=== PATIENT | male | born 1930 | race Caucasian/White ===

== ENCOUNTER 2017-08-03 08:42 | Emergency (ER) | payer MEDICARE, BC ==
[~2017-08-03] VITALS: Ht 180.3 cm; Wt 85.0 kg
[~2017-08-03 08:42] MED LIST: ALPR0.25 PO; CARV12.52 PO; DESM1TAB16 PO; DILT-48 PO; ESCI10TA PO; FINA5TAB2 PO; LISI10TA3 PO; OCUVTAB4 PO; PANT40TA3 PO; PRAV20TA2 PO; SYMB80AE INH; TAMS0.4C4 PO; TIOT12.9 INH; TRAV0.00 EACH EYE; VESI5TAB2 PO; WARF-23 PO
[2017-08-03 08:50] VITALS: BP 136/63; PULSE 74; RESP 16; TEMP 97.8; O2SAT 100
[2017-08-03] MEDS ORDERED: LISI-519 PO (09:20)
[2017-08-03] MEDS ORDERED: DILT120C50 PO (09:20)
[2017-08-03 09:25] VITALS: BP_SYST 139; BP_SYST 144; BP_DIAS 63; BP_DIAS 70; PULSE 64; RESP 18; RESP 20; O2SAT 98
[2017-08-03] MEDS ORDERED: SODIUM CHLORIDE 0.9% FLUSH 10 ML FLUSH IVF PRN (09:30)
[2017-08-03 09:54] LABS: AUTOMATED NEUTROPHIL # 5.3 TH/MM3 (1.8-7.7); BASOPHIL # 0.1 TH/MM3 (0-0.2); BASOPHIL % 0.8 % (0.0-2.0); EOSINOPHIL # 0.2 TH/MM3 (0-0.4); HEMATOCRIT 41.3 % (39.0-51.0); HEMOGLOBIN 13.6 GM/DL (13.0-17.0); LYMPH % 10.3 % (9.0-44.0); LYMPHOCYTE # 0.8 TH/MM3 (1.0-4.8); MEAN CELL VOLUME 98.8 FL (80.0-100.0); MEAN CORPUSCULAR HEMOGLOBIN 32.5 PG (27.0-34.0); MEAN CORPUSCULAR HGB CONC 32.9 % (32.0-36.0); MEAN PLATELET VOLUME 7.8 FL (7.0-11.0); NEUT % 71.9 % (16.0-70.0); PLATELET COUNT 296 TH/MM3 (150-450); RED BLOOD COUNT 4.18 MIL/MM3 (4.50-5.90); RED CELL DISTRIBUTION WIDTH 14.9 % (11.6-17.2); WHITE BLOOD COUNT 7.4 TH/MM3 (4.0-11.0)
[2017-08-03 09:58] LABS: INTERNATIONAL NORMALIZED RATIO 2.7 RATIO; PROTHROMBIN TIME - PATIENT 26.9 SEC (9.8-11.6)
[2017-08-03 10:12] LABS: ALBUMIN 2.8 GM/DL (3.4-5.0); ALT (GPT) 15 U/L (12-78); AST (GOT) 12 U/L (15-37); BICARBONATE 28.5 MEQ/L (21.0-32.0); BLOOD UREA NITROGEN 19 MG/DL (7-18); CALCIUM 8.9 MG/DL (8.5-10.1); CHLORIDE 108 MEQ/L (98-107); CREATININE 1.27 MG/DL (0.60-1.30); GLOMERULAR FILTRATION RATE 54 ML/MIN (>89); GLUCOSE,RANDOM 116 MG/DL (74-106); SODIUM (NA) 143 MEQ/L (136-145)
[2017-08-03 10:16] LABS: ALKALINE PHOSPHATASE 61 U/L (45-117); TOTAL PROTEIN 6.5 GM/DL (6.4-8.2); TROPONIN I LESS THAN 0.02 NG/ML (0.02-0.05)
--- NOTE | 2017-08-03 10:22 | RADRPT ---
EXAM DATE: 08/03/2017 10:04 AM EDT AGE/SEX: 86 years / Male INDICATIONS: Chest pain after fall, feeling of tightness above left sided pacemaker. CLINICAL DATA: This is the patient's initial encounter. Patient reports that signs and symptoms have been present for 1 week and indicates a pain score of 3/10. MEDICAL/SURGICAL HISTORY: None. Pacemaker. COMPARISON: [facility], CHEST SINGLE AP, 08/16/2014. . FINDINGS: A single AP view of the chest demonstrates the lungs to be symmetrically aerated without evidence of mass, infiltrate or effusion. Stable cardiomegaly. Dual lead pacing device. Pulmonary vasculature is normal in caliber. Osseous structures are intact. CONCLUSION: Stable cardiomegaly without evidence of congestive heart failure. No evidence of rib fracture or pulm onary contusion. Electronically signed by: Sylvia Dutta MD 08/03/2017 10:20 AM EDT
--- NOTE | 2017-08-03 10:25 | RADRPT ---
EXAM DATE: 08/03/2017 10:18 AM EDT AGE/SEX: 86 years / Male INDICATIONS: Right arm numbness with neck stiffness. CLINICAL DATA: This is the patient's initial encounter. Patient reports that signs and symptoms have been present for 1 month and indicates a pain score of 3/10. MEDICAL/SURGICAL HISTORY: Cardiovascular disease. Appendectomy. Cholecystectomy. Pacemaker. RADIATION DOSE: 26.21 CTDI (mGy) COMPARISON: No prior [facility] exams available for comparison. TECHNIQUE: Contiguous axial images were obtained using helical multirow detector technique. The vol umetric data was post-processed with multiplanar reconstruction in oblique axial, sagittal, and coron al planes. Using automated exposure control and adjustment of the mA and/or kV according to patient s ize, radiation dose was kept as low as reasonably achievable to obtain optimal diagnostic quality sharlene ges. FINDINGS: Vertebrae: Normal vertebral body height. Alignment: There is slight retrolisthesis of C3 on C4. C2-3: Bilateral uncovertebral joint hypertrophy and calcified posterior disc osteophyte complex. Cornelio ateral mild neural foraminal narrowing. No significant spinal canal narrowing. C3-4: Severe disc desiccation and disc space narrowing with grade 1 retrolisthesis of C3 on C4. Sabrina re bilateral uncovertebral joint hypertrophy. Severe left-sided neural foraminal stenosis, moderate o n the right. Moderate narrowing of the spinal canal in AP dimension. C4-5: Severe left-sided facet degenerative change. Mild left-sided neural foraminal narrowing. Minim al posterior disc osteophyte complex. C5-6: Severe bilateral facet degenerative changes, left greater than right. Uncovertebral joint hype rtrophy and posterior disc osteophyte complex. Moderate bilateral neuroforaminal stenosis. No signifi cant spinal canal stenosis. C6-7: Uncovertebral joint hypertrophy with no significant neural foraminal stenosis. C7-T1: The bony spinal canal is normal in size. No evidence of disc bulge or herniation. The neura l foramina are bilaterally patent. CONCLUSION: 1. Degenerative changes as noted above. Electronically signed by: Sylvia Dutta MD 08/03/2017 10:23 AM EDT
--- NOTE | 2017-08-03 11:42 | PD ---
HPI Chief Complaint: Chest Pain Time Seen by Provider: 09:00 Travel History International Travel<30 days: No Contact w/Intl Traveler<30days: No Traveled to known affect area: No History of Present Illness HPI Patient is an 86-year-old male who comes in complaining of pain across his chest and some tingling in his fingers ever since a fall a week ago. He said he was [place] his to the airport he slipped in a puddle and fell on his front side. He denies hitting his head or any loss of consciousness. He says he has chronic neck pain. He has seen his primary doctor since this and has not told him about any of these symptoms. He says they come and go. He does not think they are related to exertion. He did see his tunnel kiln firer in July and his reports that he had several tests done that were all normal. He denies shortness of breath or fevers. Severity is mild. PFSH Past Medical History Hx Anticoagulant Therapy: Yes Arthritis: Yes Asthma: No Atrial Fibrillation: Yes Autoimmune Disease: Yes (diverticular ) Blood Disorders: No Anxiety: No Depression: No Heart Rhythm Problems: Yes Cancer: No Cardiovascular Problems: Yes High Cholesterol: Yes Chemotherapy: No Chest Pain: Yes Congestive Heart Failure: No COPD: No Cerebrovascular Accident: No Diabetes: Yes Patient Takes Glucophage: No Diminished Hearing: Yes Endocrine: No Gastrointestinal Disorders: Yes GERD: Yes Glaucoma: No Headaches: Yes Hepatitis: No Hiatal Hernia: No Hypertension: Yes Immune Disorder: No Kidney Stones: No Musculoskeletal: Yes Neurologic: No Psychiatric: No Respiratory: Yes Myocardial Infarction: No Radiation Therapy: No Renal Failure: No Seizures: No Sleep Apnea: Yes Thyroid Disease: No Ulcer: No Past Surgical History Abdominal Surgery: Yes (gallbladder removal 1999) Appendectomy: Yes Cardiac Surgery: No Cholecystectomy: Yes Ear Surgery: No Endocrine Surgery: No Eye Surgery: No Genitourinary Surgery: No Gynecologic Surgery: No Joint Replacement: No Oral Surgery: No Pacemaker: Yes Thoracic Surgery: No Other Surgery: Yes Social History Alcohol Use: Yes ("OCCASIONALLY") Tobacco Use: No Substance Use: No Allergies-Medications (Allergen,Severity, Reaction): Coded Allergies: No Known Allergies (Verified Adverse Reaction, Unknown, 08/03/17) Reported Meds & Prescriptions Reported Meds & Active Scripts Active Reported Lisinopril 5 Mg Tab 5 Mg PO DAILY Diltiazem CD 24 HR 120 Mg Caper 120 Mg PO DAILY Spiriva Respimat Inh (Tiotropium Inh) 2.5 Mcg/Act Aero 2 Puff INH HS 2.5 mcg = 1 inhalation Carvedilol 12.5 Mg Tab 25 Mg PO BID Preservision Areds (Multiple Vitamins W/ Minerals) 1 Tab 1 Tab PO DAILY Travatan Z Opth Drops (Travoprost) 0.004 % Soln 1 Drop EACH EYE HS Warfarin 5 Mg Tab 5 Mg PO DAILY Tamsulosin (Tamsulosin HCl) 0.4 Mg Cap 0.4 Mg PO HS Vesicare (Solifenacin) 5 Mg Tab 5 Mg PO DAILY Pravastatin 20 Mg Tab 20 Mg PO DAILY Escitalopram (Escitalopram Oxalate) 10 Mg Tab 10 Mg PO DAILY Desmopressin (Desmopressin Acetate) 0.2 Mg Tab 0.2 Mg PO BID Finasteride 5 Mg Tab 5 Mg PO DAILY Do not crush. Symbicort Inh (Budesonide/Formoterol Fumarate) 80-4.5 Mcg/Act Aero 1 Puff INH Q12HR Review of Systems Except as stated in HPI: all other systems reviewed are Neg General / Constitutional: No: Fever, Chills Eyes: No: Blurred Vision HENT: Positive: Neck Pain, No: Headaches, Lightheadedness Cardiovascular: Positive: Chest Pain or Discomfort Respiratory: No: Shortness of Breath Gastrointestinal: No: Nausea, Vomiting, Abdominal Pain Genitourinary: No: Dysuria Skin: No Rash, No Change in Pigmentation Neurologic: No: Weakness, Dizziness Physical Exam Narrative GENERAL: Awake and alert, no acute distress. SKIN: Focused skin assessment warm/dry. No wounds or signs of infection. HEAD: Atraumatic. Normocephalic. EYES: Pupils equal and round. No scleral icterus. ENT: Mucous membranes pink and moist. NECK: Trachea midline. No JVD. CARDIOVASCULAR: Regular rate and rhythm. No murmur appreciated. RESPIRATORY: No accessory muscle use. Clear to auscultation. Breath sounds equal bilaterally. GASTROINTESTINAL: Abdomen soft, non-tender, nondistended. MUSCULOSKELETAL: No obvious deformities. No clubbing. No cyanosis. No edema. NEUROLOGICAL: Awake and alert. No obvious cranial nerve deficits. Motor grossly within normal limits. Normal speech. No sensory disturbance. PSYCHIATRIC: Appropriate mood and affect; insight and judgment normal. Data Data Last Documented VS Vital Signs Date Time Temp Pulse Resp B/P (MAP) Pulse Ox O2 Delivery O2 Flow Rate FiO2 08/03/17 11:45 97.8 68 18 130/77 (94) 99 08/03/17 09:25 Room Air Orders Orders Ckmb (Isoenzyme) Profile (08/03/17 09:25) Complete Blood Count With Diff (08/03/17 09:25) Comprehensive Metabolic Panel (08/03/17:25) Prothrombin Time / Inr (Pt) (08/03/17:25) Act Partial Throm Time (Ptt) (08/03/17:25) Troponin I (08/03/17:25) Chest, Single Ap (08/03/17:25) Ecg Monitoring (08/03/17:25) Bilateral Bp Monitoring (08/03/17:) Iv Access Insert/Monitor (08/03/17:25) Oximetry (08/03/17:25) Oxygen Administration (08/03/17:25) Sodium Chloride 0.9% Flush (Ns Flush) (08/03/17 09:30) Ct Cerv Spine W/O Contrast (08/03/17 ) Ed Discharge Order (08/03/17 11:42) Electrocardiogram (08/03/17 09:03) Labs Laboratory Tests Test 08/03/17 09:34 White Blood Count 7.4 TH/MM3 Red Blood Count 4.18 MIL/MM3 Hemoglobin 13.6 GM/DL Hematocrit 41.3 % Mean Corpuscular Volume 98.8 FL Mean Corpuscular Hemoglobin 32.5 PG Mean Corpuscular Hemoglobin Concent 32.9 % Red Cell Distribution Width 14.9 % Platelet Count 296 TH/MM3 Mean Platelet Volume 7.8 FL Neutrophils (%) (Auto) 71.9 % Lymphocytes (%) (Auto) 10.3 % Monocytes (%) (Auto) 14.0 % Eosinophils (%) (Auto) 3.0 % Basophils (%) (Auto) 0.8 % Neutrophils # (Auto) 5.3 TH/MM3 Lymphocytes # (Auto) 0.8 TH/MM3 Monocytes # (Auto) 1.0 TH/MM3 Eosinophils # (Auto) 0.2 TH/MM3 Basophils # (Auto) 0.1 TH/MM3 CBC Comment DIFF FINAL Differential Comment Prothrombin Time 26.9 SEC Prothromb Time International Ratio 2.7 RATIO Activated Partial Thromboplast Time 37.0 SEC Blood Urea Nitrogen 19 MG/DL Creatinine 1.27 MG/DL Random Glucose 116 MG/DL Total Protein 6.5 GM/DL Albumin 2.8 GM/DL Calcium Level 8.9 MG/DL Alkaline Phosphatase 61 U/L Aspartate Amino Transf (AST/SGOT) 12 U/L Alanine Aminotransferase (ALT/SGPT) 15 U/L Total Bilirubin 1.0 MG/DL Sodium Level 143 MEQ/L Potassium Level 4.5 MEQ/L Chloride Level 108 MEQ/L Carbon Dioxide Level 28.5 MEQ/L Anion Gap 7 MEQ/L Estimat Glomerular Filtration Rate 54 ML/MIN Total Creatine Kinase 47 U/L Troponin I LESS THAN 0.02 NG/ML MDM Medical Decision Making Medical Screen Exam Complete: Yes Emergency Medical Condition: Yes Medical Record Reviewed: Yes Interpretation(s) ECG shows a paced rhythm. Differential Diagnosis Chest wall contusion versus rib fracture versus ACS (unlikely) Narrative Course Patient is a 86-year-old male comes in complaining of pain to his chest after a fall a week ago. Exam shows no acute abnormalities. There are no neurologic abnormalities. IV established, labs sent. Labs show no acute abnormalities. CT neck shows no acute abnormalities. X-ray of the chest shows no acute abnormalities, pacer is in place. Last 24 hours Impressions Chest X-Ray 08/03/17 0925 Signed Impressions: CONCLUSION: Stable cardiomegaly without evidence of congestive heart failure. No evidence o f rib fracture or pulmonary contusion. Cervical Spine CT 08/03/17 0000 Signed Impressions: CONCLUSION: 1. Degenerative changes as noted above. Patient offered admission to the chest pain center, however he would prefer to go home and follow-up with his doctor tomorrow. He will call Dr. Andres tomorrow morning as well. Advised return anytime for any worsening symptoms. Diagnosis Primary Impression: Fall Qualified Codes: W19.XXXA - Unspecified fall, initial encounter Additional Impression: Chest pain Qualified Codes: R07.9 - Chest pain, unspecified Patient Instructions: Chest Pain (ED), Fall Prevention (ED), General Instructions Additional Instructions: Follow-up with your doctor tomorrow as scheduled. Call your tunnel kiln firer tomorrow to schedule an appointment. Return to the ED at anytime for any worsening symptoms. Disposition: 01 DISCHARGE HOME Condition: Stable Savannah Pulido MD Aug 03, 2017 11:42
[2017-08-03 11:45] VITALS: BP 130/77; TEMP 97.8
--- NOTE | 2017-08-03 17:14 | EKG ---
Date Performed: 08/03/2017 Time Performed: 09:03:30 PTAGE: 86 years EKG: UNDERLYING RHYTHM ATRIAL FIBRILLATION ELECTRONIC VENTRICULAR PACING WITH APPROPRIATE SENSIN G THERE ARE SOME CONDUCTED BEATS SEEN ON THE PRECORDIAL LEADS Since the previous tracing, no signific ant change noted ABNORMAL ECG PREVIOUS TRACING : 08/16/2014 08.50 DOCTOR: Rancho Ann Interpretating Date/Time 08/03/2017 17:12:25
== END 2017-08-03 11:50 | disposition home or self-care (01) ==
LOC: NEPE 08:42
DX: R07.9 Chest pain, unspecified (principal); R20.2 Paresthesia of skin; M54.2 Cervicalgia; I48.91 Unspecified atrial fibrillation; R94.31 Abnormal electrocardiogram [ECG] [EKG]; I10 Essential (primary) hypertension; K21.9 Gastro-esophageal reflux disease without esophagitis; E78.00 Pure hypercholesterolemia, unspecified; E11.9 Type 2 diabetes mellitus without complications
CPT/HCPCS: 71045; 72125; 80053; 82550; 84484; 85025; 85610; 85730; 93005; 99285